=== PATIENT | male | born 1950 | race Caucasian/White ===

== ENCOUNTER → 2018-08-09 | Day surgery (SDC) | payer MEDICARE ==
[~2018-08-09] MED LIST: LIDOCAINE 2% PF Vial for OR 5 ML VIAL. ONE; PROPOFOL 10,000 MCG/ML (20ML) VIAL IV ONE; PROPOFOL 40 ML IV ONE
[2018-08-09 15:00] VITALS: BP 158/100
== END | disposition home or self-care (01) ==
LOC: SURG 12:30 → EDUNIT# 13:30
PROVIDERS: ATTEND Internal Medicine Gastroenterology
DX: K52.89 Other specified noninfective gastroenteritis and colitis (principal); K51.80 Other ulcerative colitis without complications; I10 Essential (primary) hypertension; K85.90 Acute pancreatitis without necrosis or infection, unspecified; Z79.899 Other long term (current) drug therapy; Z90.49 Acquired absence of other specified parts of digestive tract; Z98.890 Other specified postprocedural states; Z85.46 Personal history of malignant neoplasm of prostate; Z88.0 Allergy status to penicillin; Z91.013 Allergy to seafood; Z88.8 Allergy status to other drugs, medicaments and biological substances; Z87.19 Personal history of other diseases of the digestive system
CPT/HCPCS: 45380; J2704; G0105; J2001